=== PATIENT | female | born 1975 | race Caucasian/White ===

== ENCOUNTER 2016-05-07 09:11 | Emergency (ER) | payer OTHER ==
[2016-05-07 09:51] LABS: BILIRUBIN NEGATIVE (NEGATIVE); BLOOD TRACE-INTACT Ery/uL (NEGATIVE); CLARITY CLEAR (CLEAR); COLOR COLORLESS (YELLOW); GLUCOSE (U) NORMAL (NORMAL); KETONE (U) NEGATIVE (NEGATIVE); LEUKOCYTES NEGATIVE Leu/uL (NEGATIVE); NITRITE NEGATIVE (NEGATIVE); PROTEIN NEGATIVE (NEGATIVE); SPECIFIC GRAVITY <=1.005 (1.001-1.030); UROBILINOGEN 0.2 mg/dL (0.2-1.0)
[2016-05-07 09:56] LABS: BACTERIA TRACE; MUCOUS TRACE; URINARY RBC RARE
== END 2016-05-07 10:36 | disposition home or self-care (01) ==
LOC: FER 09:11
PROVIDERS: Emergency Medicine
DX: M54.5 Low back pain (principal); R82.90 Unspecified abnormal findings in urine; Z88.0 Allergy status to penicillin; Z88.6 Allergy status to analgesic agent
CPT/HCPCS: 81001; 87088; 99283

== ENCOUNTER 2016-05-28 10:05 | Emergency (ER) | payer OTHER | END 2016-05-28 12:35 | disposition home or self-care (01) | LOC: FER 10:05 | DX: S39.012A Strain of muscle, fascia and tendon of lower back, initial encounter (principal); F17.210 Nicotine dependence, cigarettes, uncomplicated; Z88.0 Allergy status to penicillin; X50.9XXA Other and unspecified overexertion or strenuous movements or postures, initial encounter | CPT/HCPCS: 72110; J2270; J2405 ==